=== PATIENT | female | born 1955 | race Asian ===

== ENCOUNTER 2016-11-02 06:22 | Day surgery (SDC) | payer BC, OTHER ==
[~2016-11-02] VITALS: Ht 157.5 cm; Wt 81.8 kg
[2016-11-02] MEDS ORDERED: PROPOFOL 20 ML ONE (07:36)
[2016-11-02 07:39] VITALS: Ht 157.5 cm; Wt 81.8 kg
[2016-11-02 07:47] VITALS: BP 154/79; PULSE 52; RESP 19
[2016-11-02] MEDS ORDERED: ATROPINE 1 MG/10 ML SYRINGE ONE (07:47)
[2016-11-02] MEDS ORDERED: NO HOME MEDS (07:58)
[2016-11-02 08:35] VITALS: BP 138/75; RESP 20
--- NOTE | 2016-11-02 08:36 | GILP ---
DATE OF PROCEDURE: NAME OF PROCEDURES: 1. Esophagogastroduodenoscopy and biopsy. 2. Colonoscopy. SURGEON: Jeannette Vick MD PREOPERATIVE DIAGNOSES: 1. Abdominal pain. 2. Chronic heartburn. 3. Change in the bowel habit. 4. Screening colonoscopy. POSTOPERATIVE DIAGNOSES: 1. Gastroesophageal reflux disease. 2. Gastritis with erosions. 3. Gastric mucosal biopsies were taken for Helicobacter pylori test. 4. Colonoscopy all the way to the cecum. 5. Internal hemorrhoids. 6. No colon neoplasm was identified. INDICATION FOR THE PROCEDURE: Ms. Tyra Grimes is a 60-year-old female patient who had upper abdominal pain and chronic heartburn, not responding to therapy. She noticed a change in the bowel habit with constipation. She never had screening colonoscopy. The procedures and possible complications were well explained to the patient. She understood and co nsented to the procedure. DESCRIPTION OF PROCEDURE: Under the influence of anesthesia the gastroscope was carefully introduce d into the esophagus and under direct vision it was advanced to the stomach and through the pylorus, into the duodenal bulb and descending duodenum. FINDINGS: ESOPHAGUS: The patient had gastroesophageal reflux disease. STOMACH: She had gastritis with erosions. Gastric mucosal biopsies were taken for H. pylori test. DESCENDING DUODENUM: Normal. The colonoscope was carefully introduced in the rectum and under direct vision it was advanced all t he way to the cecum. FINDINGS: The patient had internal hemorrhoids. No colon neoplasm was identified. She tolerated the procedures very well and there was no complication from the procedures. At the en d of the procedures she was awake with stable vital signs and she was discharged home to the care of her family. IMPRESSION: 1. Gastroesophageal reflux disease. 2. Gastritis with erosions. 3. Gastric mucosal biopsies were taken for Helicobacter pylori test. 4. Colonoscopy all the way to the cecum. 5. Internal hemorrhoids. 6. No colon neoplasm was identified. PLAN: 1. Omeprazole 40 mg p.o. q.a.m. 2. MiraLax 17 grams dissolved in a glass of water p.o. daily. 3. Await H. pylori test report. 4. Next screening colonoscopy in 10 years. Dictated By: JEANNETTE SUE/HEYDI Conf#: [id number] DID#: [id number]
[2016-11-02 09:16] VITALS: BP 122/56; PULSE 82; RESP 19
== END 2016-11-02 09:37 | disposition home or self-care (01) ==
LOC: GIL 06:22
PROVIDERS: ATTEND Internal Medicine Gastroenterology
DX: Z12.11 Encounter for screening for malignant neoplasm of colon (principal); K29.60 Other gastritis without bleeding; K64.8 Other hemorrhoids; B96.81 Helicobacter pylori [H. pylori] as the cause of diseases classified elsewhere
CPT/HCPCS: 87081; J0461

== ENCOUNTER 2017-12-18 10:51 | Day surgery (SDC) | END 2017-12-18 17:13 | disposition home or self-care (01) ==